=== PATIENT | female | born 1995 | race Caucasian/White ===

== ENCOUNTER 2017-12-04 07:18 | Emergency (ER) | payer MEDICAID ==
[2017-12-04] MEDS ORDERED: IBUPROFEN 600 MG TABLET PO STA (07:57)
[2017-12-04] MEDS ORDERED: ONDANSETRON ODT 4 MG TABLET TL STA (07:57)
[2017-12-04] MEDS ORDERED: LIDOCAINE MPF 1%-EPI 1:200000 30 ML VIAL SUBQ STA (07:59)
--- NOTE | 2017-12-04 08:35 | ED Physician Documentation ---
PD HPI HEAD INJURY - Stated complaint Stated Complaint: HEAD INJ-FALL - Chief complaint Chief Complaint: Trauma Hd/Nk - History obtained from History obtained from: Patient - History of Present Illness Mechanism of head injury: Fell (she fell from about 4-5 feet from loft bed steps , striking backward and hit head on furniture. She did not have LOC abruptly, but felt lightheaded and fainted when she sat up and tried to stand up. Brief tremoring movement for few seconds and then went limp. Awoke in minute or so. Able to talk and converse at that point. Normal vision. Mild nausea but no vomiting. 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 denies: Focal weakness, Numbness, Confused, Altered mental status, Headache Psychiatric: denies: Depressed, Suicidal, Homicidal PD PAST MEDICAL HISTORY - Past Medical History Past Medical History: No Cardiovascular: None Respiratory: None Neuro: Migraines - Past Surgical History Past Surgical History: No - Present Medications Home Medications: Ambulatory Orders Medication Instructions Recorded Confirmed No Known Home Medications [No 12/04/17 12/04/17 Known Home Medications] - Allergies Allergies/Adverse Reactions: Allergies Allergy/AdvReac Type Severity Reaction Status Date / Time No Known Drug Allergies Allergy Verified 12/04/17 07:35 - Social History Does the pt smoke?: No Smoking Status: Never smoker Does the pt drink ETOH?: Yes Does the pt have substance abuse?: No PD ED PE NORMAL - Vitals Vital signs reviewed: Yes - General General: Alert and oriented X 3, No acute distress, Well developed/nourished - HEENT HEENT: PERRL, EOMI, Moist mucous membranes, Pharynx benign, Other (occiput area with 1.5 cm laceration without FB and does have slight bleeding still. 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, No motor deficit, No sensory deficit, Normal speech Eye Opening: Spontaneous Motor: Obeys Commands Verbal: Oriented GCS Score: 15 - Psych Psych: Normal mood, Normal affect Results - Vitals Vitals: Vital Signs - 24 hr 12/04/17 12/04/17 07:30 08:39 Temperature 36.3 C L Heart Rate 56 L 64 Respiratory 16 16 Rate Blood Pressure 99/62 97/60 O2 Saturation 100 Oxygen O2 Source Room air Procedures - Laceration (location) lower occiput Length in cm: 1.5 Wound type: Linear, Into subcut fat, Clean Anesthesia: Lidocaine 1% with epi Wound Preparation: Irrigated copiously NS Skin layer closure: Felix Other: No complications, Neurovascular intact Complexity: Simple PD MEDICAL DECISION MAKING - ED course Complexity details: considered differential (shared decision not to do CT head at this point. ), d/w patient, d/w family (mom and boyfriend) - Sepsis Event Vital Signs: Vital Signs - 24 hr 12/04/17 12/04/17 07:30 08:39 Temperature 36.3 C L Heart Rate 56 L 64 Respiratory 16 16 Rate Blood Pressure 99/62 97/60 O2 Saturation 100 Oxygen O2 Source Room air Departure - Departure Disposition: 01 Home, Self Care Clinical Impression: Accidental fall Qualifiers: Encounter type: initial encounter Qualified Code(s): W19.XXXA - Unspecified fall, initial encounter Mild concussion Qualifiers: Encounter type: initial encounter Loss of consciousness presence/duration: with LOC of 30 min or less Qualified Code(s): S06.0X1A - Concussion with loss of consciousness of 30 minutes or less, initial encounter Occipital scalp laceration Qualifiers: Encounter type: initial encounter Qualified Code(s): S01.01XA - Laceration without foreign body of scalp, initial encounter Condition: Stable Record reviewed to determine appropriate education?: Yes Instructions: ED Concussion, ED Laceration Scalp Stitch Or Stap Follow-Up: Ashley Brady ARNP [Primary Care Provider] - Comments: It is okay to wash and shower. Clean off the wound twice a day with soap and water, or peroxide and water. Apply some antibiotic ointment to it to keep it moist. Also to watch for signs of infection such as purulence, redness or increasing pain. Return to your primary care or the ER at the specified time for staple removal. Staple removal 7-8 days. Use Excedrin or ibuprofen if needed for headaches. An injury like this can trigger some migraines over the next few days. Recheck if headache worse than your typical migraine or associated with other head injury symptoms. Discharge Date/Time: 12/04/17 08:40
[2017-12-04 08:43] VITALS: BP 97/60
== END 2017-12-04 08:40 | disposition home or self-care (01) ==
LOC: ED 07:18
DX: S06.0X1A Concussion with loss of consciousness of 30 minutes or less, initial encounter (principal); S01.01XA Laceration without foreign body of scalp, initial encounter; W06.XXXA Fall from bed, initial encounter
CPT/HCPCS: 12001; 99283; A9270; Q0162